=== PATIENT | female | born 1965 | race Caucasian/White ===

== ENCOUNTER 2024-01-28 20:10 | Emergency (ER) | payer SELFPAY ==
--- NOTE | ~2024-01-28 | CT_ITS ---
EXAMINATION: CT cervical spine wo con DATE: 01/28/2024 21:30 INDICATION: head injury TECHNIQUE: Computed tomography (CT) of the cervical spine was performed without intravenous contrast. Automated exposure control and iterative reconstruction technique were employed. The dose-length pro duct was 268.62 mGy-cm. COMPARISON: None. FINDINGS: Vertebral Body Alignment: Intact. Craniocervical and atlantoaxial alignment: Mild degenerative change. Alignment intact. Osseous structures/fracture: No evidence of a lytic or blastic process in the visualized spine. No e vidence of acute fracture. Multilevel chronic/degenerative-appearing superior endplate deformities in volving C7-T2. Cervical soft tissues: The paraspinal soft tissues planes are maintained. 4 mm right upper lobe pulmo nary nodule. Degenerative changes: Degenerative changes, without severe neural foraminal or central canal narrowin g. IMPRESSION: No acute fracture or traumatic malalignment in the cervical spine. 4 mm right upper lobe pulmonary nodule which requires no additional evaluation unless the patient is at high risk, in which case consider an optional low-dose noncontrast CT of the chest in 12 months. Reviewed, dictated and finalized at location K.
--- NOTE | ~2024-01-28 | CT_ITS ---
EXAMINATION: CT brain wo con DATE: 01/28/2024 21:29 INDICATION: Head injury . TECHNIQUE: Computed tomography (CT) of the head was performed without intravenous contrast. The mA wa s adjusted according to patient size. Iterative reconstruction technique was employed. The dose-lengt h product was 605.33 mGy-cm. COMPARISON: None. FINDINGS: No acute intracranial hemorrhage or extra-axial fluid collection. No hydrocephalus, mass, or herniation. No acute ischemic infarct. Unremarkable dural venous sinus attenuation. No acute osseous abnormality. The aerated spaces are clear. Moderate atrophy and chronic white matter change. Atherosclerotic intracranial calcification. Focal o ld left basal ganglia lacunar infarcts. IMPRESSION: No acute intracranial process. Reviewed, dictated and finalized at location K.
--- NOTE | ~2024-01-28 | XR_ITS ---
EXAMINATION: XR chest 1V portable Exam Date/Time: 01/28/2024 20:40 CDT HISTORY: Syncope Comparison: None. RESULT: Lines, tubes, and devices: None. Lungs and pleura: Mild diffuse reticular opacities. Small focus of scarring or discoid atelectasis i n the peripheral left lower lung. Cardiomediastinal silhouette: Stable. Other: No acute osseous or upper abdominal finding. IMPRESSION: Mild interstitial edema. Reviewed, dictated and finalized at location K. IMPRESSION: Mild interstitial edema.
[2024-01-28 20:10] VITALS: BP 124/72; PULSE 74; RESP 22; TEMP 36.8; O2SAT 97
[2024-01-28 20:17] VITALS: PULSE 72; O2SAT 97
[2024-01-28 20:31] VITALS: BP 131/74; PULSE 68; RESP 20; O2SAT 100
[2024-01-28 20:54] LABS: Basophils Absolute Auto 0.1 K/mm3 (0.0-0.1); Basophils Percent Auto 0.6 % (0.2-1.2); Eosinophils Absolute Auto 0.2 K/mm3 (0-0.3); Eosinophils Percent Auto 1.9 % (0-4.4); Hematocrit 44.2 % (37.0-47.0); Hemoglobin 15.2 g/dL (12.0-15.0); Immature Granulocyte Absolute 0.04 K/mm3 (0.00-0.031); Immature Granulocyte Percent A 0.3 % (0-0.5); Lymphocytes Percent Auto 37.2 % (18.3-44.2); Mean Corpuscular HGB Conc 34.4 g/dl (32-36); Mean Corpuscular Hemoglobin 31.4 pg (26-34); Mean Corpuscular Volume 91.3 fl (80-100); Mean Platelet Volume 9.1 fl (7.4-10.4); Monocytes Absolute Auto 0.7 K/mm3 (0.1-0.6); Monocytes Percent Auto 5.4 % (2.6-8.5); Neutrophils Absolute Auto 6.9 K/mm3 (1.3-6.7); Neutrophils Percent Auto 54.6 % (45.5-73.1); Platelet Count Result 268 k/mm3 (150-375); Red Blood Count 4.84 M/mm3 (4.2-5.4); Red Cell Distribution Width 14.9 % (11.5-14.5); White Blood Count 12.6 K/mm3 (4.5-10.0)
[2024-01-28 21:07] LABS: Alanine Aminotransferase 12 U/L (6-35); Albumin Level 4.4 g/dL (3.5-5.1); Alkaline Phosphatase 83 U/L (38-126); Anion Gap 10 mmol/L (4-12); Aspartate Amino Transferase 32 U/L (14-36); Bilirubin,Total 0.3 mg/dL (0.2-1.3); Blood Urea Nitrogen 2 mg/dL (7-17); Calcium 8.5 mg/dL (8.4-10.2); Carbon Dioxide 24 mmol/L (22-30); Chloride 96 mmol/L (98-107); Estimated CRCL calculation 99 ml/min; Estimated Glomerular Filt Rate > 60; Glucose 95 mg/dL (65-110); Magnesium 1.7 mg/dL (1.6-2.3); Potassium 3.7 mmol/L (3.4-5.0); Sodium 130 mmol/L (137-145)
[2024-01-28 21:28] LABS: Ethanol 359 mg/dL (<10)
[2024-01-28 21:31] VITALS: PULSE 76; RESP 16; O2SAT 100
--- NOTE | 2024-01-28 22:02 | PC.NURSE ---
patient declines urine sample. notified
--- NOTE | 2024-01-28 22:27 | ED.SYNCOPE ---
HPI - Syncope General Chief Complaint: Syncope Stated Complaint: syncopal episode Time Seen by Provider: 01/28/24 20:23 History of Present Illness HPI narrative: This is a 58-year-old female, with no significant past medical history, brought in by EMS from home after a syncopal episode. The patient states he had been drinking this evening and did not recall loss in consciousness. She did states she fell earlier today and hit her head. She denies use of anticoagulants. She denies chest pain, shortness of breath, weakness/numbness, bleeding from any source of my nausea or vomiting. She has no other complaints at this time Review of Systems Review of Systems: All systems reviewed & are unremarkable except as noted in HPI and below PMFSH Past Medical History Medical History (Updated 01/29/24 @ 01:53 by Ebenezer Go MD) No significant past medical history Surgical History Surgical History (Updated 01/29/24 @ 01:53 by Ebenezer Go MD) No significant past surgical history Exam Narrative: GENERAL: Well-developed, well-nourished, and in no acute distress. Appears intoxicated, smells of alcohol HEAD: Normocephalic, atraumatic. EYES: PERRLA and EOMI. CHEST: Clear to auscultation. No respiratory distress. No wheezes rales or rhonchi HEART: Regular rate and rhythm. No murmur heard. Normal peripheral pulses. ABDOMEN: Soft, nontender, nondistended, normal active bowel sounds. EXTREMITIES: Normal range of motion. No edema. SKIN: Warm, dry, no rash. NEURO: Alert and oriented x3. No focal deficit. Moving all 4 limbs spontaneously. PSYCH: Normal mood and affect. Course Course Emergency Course: 22:28 - Labs remarkable for alcohol of 359. Chemistries demonstrate mild hyponatremia sodium 130 but is otherwise unremarkable. CBC demonstrates white blood cell count of 12.6 but is otherwise unremarkable. CT head and cervical spine not concerning for fracture, intracranial hemorrhage or dislocation. There is a left lobe nodule noted on the CT cervical spine recommendation for non emergent CT follow-up in 1 year. The patient became agitated with staff stating that she did not want to stay. She was able to contact family members who are sober and willing to accept responsibility for her. I discussed the findings and recommendations with the patient and her family members. Discussed return and emergency precautions including signs/symptoms of ACS and respiratory distress. The patient and her family members voiced understanding and agreement with the plan. All questions answered to their satisfaction. Vital Signs Vital signs: Vital Signs Temperature 98.2 F 01/28/24 20:10 Pulse Rate 74 01/28/24 20:10 Respiratory Rate 22 H 01/28/24 20:10 Blood Pressure 124/72 01/28/24 20:10 Pulse Oximetry 97 01/28/24 20:10 Oxygen Delivery Room Air 01/28/24 20:10 Temperature 98.2 F 01/28/24 20:10 Pulse Rate 76 01/28/24 21:31 Respiratory Rate 16 01/28/24 21:31 Blood Pressure 131/74 01/28/24 20:31 Pulse Oximetry 100 01/28/24 21:31 Oxygen Delivery Room Air 01/28/24 20:17 MDM - Syncope MDM Narrative Medical decision making narrative: Plan: Labs, imaging, EKG, IV fluids, reassess Differential Diagnosis Differential diagnosis: Likely syncope due to orthostatic hypotension, vasovagal syncope and other (Intracranial hemorrhage, cervical spine fracture, alcohol intoxication, metabolic abnormality, other) Lab Data 01/28/24 20:47 01/28/24 20:47 Labs: Lab Results 01/28/24 Range/Units 20:47 WBC 12.6 H (4.5-10.0) K/mm3 RBC 4.84 (4.2-5.4) M/mm3 Hgb 15.2 H (12.0-15.0) g/dL Hct 44.2 (37.0-47.0) % MCV 91.3 (80-100) fl MCH 31.4 (26-34) pg MCHC 34.4 (32-36) g/dl RDW 14.9 H (11.5-14.5) % Plt Count 268 (150-375) k/mm3 MPV 9.1 (7.4-10.4) fl Immature Gran % (Auto) 0.3 (0-0.5) % Neut % (Auto) 54.6 (45.5-73.1) % Lymph % (Auto) 37.2 (18.3-44
== END 2024-01-28 22:35 | disposition home or self-care (01) ==
PROVIDERS: Emergency Provider Preventive Medicine Aerospace Medicine
DX: R55 Syncope and collapse (principal); F10.129 Alcohol abuse with intoxication, unspecified; Y90.8 Blood alcohol level of 240 mg/100 ml or more
CPT/HCPCS: 36415; 70450; 71045; 72125; 80053; 80307; 83735; 85025; 99284